=== PATIENT | female | born 1955 | race Caucasian/White ===

== ENCOUNTER 2023-08-09 01:20 | Emergency (ER) | payer MEDICARE ==
[~2023-08-09] VITALS: Ht 160 cm; Wt 49.0 kg
[2023-08-09 01:56] VITALS: BP 116/61; O2SAT 99
[2023-08-09] MEDS ORDERED: AMOXICILLIN 500 MG CAPSULE PO ONE (06:45)
[2023-08-09] MEDS ORDERED: KETOROLAC 15MG/ML VIAL IM ONE (06:45)
[2023-08-09] MEDS ORDERED: CLIN-194 MT (07:47)
[2023-08-09 08:33] VITALS: PULSE 88; RESP 14; TEMP 98
[2023-08-09] MEDS ORDERED: CLINDAMYCIN HCL 150MG CAPSULE PO SCH (12:00)
== END 2023-08-09 08:34 | disposition home or self-care (01) ==
LOC: ER 01:42
DX: H66.93 Otitis media, unspecified, bilateral (principal); E11.9 Type 2 diabetes mellitus without complications; I10 Essential (primary) hypertension
CPT/HCPCS: 99283; 96372; J1885